=== PATIENT | female | born 1950 | race Caucasian/White ===

== ENCOUNTER 2023-07-04 02:01 | Observation (INO) | payer MEDICARE, OTHER ==
[2023-07-04] MEDS ORDERED: Guaifenesin DM 100-10/5 ML UDCUP PO PRN (02:43)
[2023-07-04] MEDS ORDERED: Zolpidem Tartrate 5 MG TAB PO PRN (02:43)
[2023-07-04] MEDS ORDERED: Calcium Carbonate 500 MG ChewTAB PO PRN (02:43)
[2023-07-04] MEDS ORDERED: Acetaminophen 325 MG TAB PO PRN (02:43)
[2023-07-04] MEDS ORDERED: Ondansetron PF 4 MG/2 ML Vial IVP PRN (02:43)
[2023-07-04] MEDS ORDERED: Senokot S 8.6-50 MG TAB PO PRN (02:43)
[2023-07-04] MEDS ORDERED: Oxymetazoline HCl 0.05% ( 15 ML ) NASAL PRN (02:46)
[2023-07-04 04:09] VITALS: BMI 25.7
[2023-07-04 05:41] LABS: Anion Gap 11 mmol/L (10-20); BUN (Urea Nitrogen) 11 mg/dL (9.8-20.1); Calc. Creatinine Clearance 63 mL/min (70-130); Calcium 8.9 mg/dL (7.8-10.44); Carbon Dioxide 25 mmol/L (23-31); Chloride 109 mmol/L (98-107); Cholesterol 185 mg/dl (< 200 Desired); Estimated GFR 72; Glucose 98 mg/dL (83-110); HDL Cholesterol 46 mg/dL (>60 Neg Risk); LDL Cholesterol, Calculated 119 mg/dL; Sodium 141 mmol/L (136-145); Triglycerides 101 mg/dL (Less than 150)
[2023-07-04] MEDS ORDERED: Aspirin 81 mg Enteric Coated Tablet PO SCH (09:00)
[2023-07-04] MEDS ORDERED: Losartan 25 MG TAB PO SCH (09:00)
[2023-07-04] MEDS ORDERED: Multivit, Therapeutic 1 TAB PO SCH (09:00)
[2023-07-04] MEDS: Fluticasone Propionate Nasal Spray 16 gm Bottle NASAL SCH ×2 (10:25→17:52)
[2023-07-04] MEDS ORDERED: PATIENT'S HOME MEDICATION PO SCH (11:00)
[2023-07-04 11:10] LABS: Actual Bicarbonate (HCO3v) 26.4 mEq/L (22-28); Analyzer IN Cardio CS ER; Base Excess 1.5 mEq/L (-2 - +2); Calcium, Ionized (venous) 1.16 mmol/L (1.16-1.32); Chloride (VBG) 108 mmol/L (98-106); Critical Notified Whom: pateri; Hematocrit-VBG 39 % (36.0-47.0); Hemoglobin (Hb) 13.2 g/dL (11.7-16.1); Potassium (VBG) 4.13 mmol/L (3.70-5.30); Puncture Site Other Site; RapidComm Collect By CBN; Sodium 143 mmol/L (133-146); pH (venous) 7.409 (7.32-7.43)
[2023-07-04 13:11] VITALS: TEMP 98.5
[2023-07-04 13:47] VITALS: BP 123/68
[2023-07-04] MEDS ORDERED: Enoxaparin 40 MG (0.4 mL) SYRINGE SC SCH (21:00)
[2023-07-04] MEDS ORDERED: Atorvastatin Calcium 40 MG TAB PO SCH (21:00)
[2023-07-05] MEDS ORDERED: Loratadine 10 MG TAB PO SCH (09:00)
[2023-07-05] MEDS ORDERED: PATIENT'S HOME MEDICATION PO SCH (09:00)
== END 2023-07-04 14:00 | disposition home or self-care (01) ==
LOC: CSHTELE 02:01 → INTOOBSV 02:01
PROVIDERS: ADMIT Student in an Organized Health Care Education/Training Program; ATTEND Family Medicine
PROC: B245ZZZ Ultrasonography of Left Heart (ICD-10-PCS; principal; 2023-07-04)
DX: R41.82 Altered mental status, unspecified (principal); R41.3 Other amnesia; G47.30 Sleep apnea, unspecified; G93.41 Metabolic encephalopathy; R73.03 Prediabetes; I10 Essential (primary) hypertension; R00.0 Tachycardia, unspecified; K59.09 Other constipation; Z91.018 Allergy to other foods; Z88.8 Allergy status to other drugs, medicaments and biological substances; Z91.048 Other nonmedicinal substance allergy status; Z91.011 Allergy to milk products; Z88.5 Allergy status to narcotic agent; Z88.2 Allergy status to sulfonamides; Z88.1 Allergy status to other antibiotic agents; Z79.82 Long term (current) use of aspirin; Z79.899 Other long term (current) drug therapy
CPT/HCPCS: 0042T; 51701; 70450; 70496; 70498; 70551; 71045; 80048; 80053; 80061; 80306; 80307; 81001; 82805; 82962; 83036; 83735; 84132; 84443; 84484; 85025; 85610; 85730; 93005; 93306; 95819; 99285; G0378 ×3; 36415; 36416; 95711; J3480; Q9967